=== PATIENT | male | born 2000 | race Two or more races ===

== ENCOUNTER 2024-05-24 02:25 | Emergency (ER) | payer SELFPAY ==
[~2024-05-24] VITALS: Ht 180.3 cm; Wt 127.0 kg
[2024-05-24 02:34] VITALS: BP 144/89; PULSE 115; RESP 24; O2SAT 100
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
== END 2024-05-24 04:26 | disposition left against medical advice (07) ==
LOC: EDBD 02:25 → ER 02:25
DX: S09.8XXA Other specified injuries of head, initial encounter (principal); I10 Essential (primary) hypertension; Z95.1 Presence of aortocoronary bypass graft; Y04.8XXA Assault by other bodily force, initial encounter; Y93.89 Activity, other specified; Y92.89 Other specified places as the place of occurrence of the external cause; Y99.8 Other external cause status